=== PATIENT | female | born 1990 | race Caucasian/White ===

== ENCOUNTER 2016-12-29 11:40 | Emergency (ER) | payer OTHER ==
[2016-12-29] MEDS ORDERED: HYDROcodone/Acetaminophen 5/325 mg Tablet ONE (12:13)
--- NOTE | 2016-12-29 12:27 | RAD ---
LEFT KNEE 4 VIEWS: Date: 12/29/16 HISTORY: Injury with pain. FINDINGS: Joint spaces appear normal. No fracture. No joint effusion. IMPRESSION: No acute findings. POS: [facility]
== END 2016-12-29 12:46 | disposition home or self-care (01) ==
LOC: SCSER 11:40
DX: S83.92XA Sprain of unspecified site of left knee, initial encounter (principal); F17.210 Nicotine dependence, cigarettes, uncomplicated; X50.1XXA Overexertion from prolonged static or awkward postures, initial encounter

== ENCOUNTER 2017-02-23 14:47 | Emergency (ER) | payer OTHER ==
--- NOTE | 2017-02-23 16:32 | RAD ---
LEFT FOREARM TWO VIEWS: 02/23/17 HISTORY: 27-year-old female with left forearm pain and swelling and deformity after a slip and fall down stair s. There is prominent soft tissue swelling of the distal forearm dorsally and on the ulnar aspect. No ev idence for acute fracture. IMPRESSION: Soft tissue swelling without acute fracture or dislocation of the forearm. POS: [facility]
== END 2017-02-23 16:20 | disposition home or self-care (01) ==
LOC: SCSER 14:47
DX: S50.12XA Contusion of left forearm, initial encounter (principal); F17.210 Nicotine dependence, cigarettes, uncomplicated; W01.0XXA Fall on same level from slipping, tripping and stumbling without subsequent striking against object, initial encounter

== ENCOUNTER 2017-04-17 14:31 | Emergency (ER) | payer OTHER | END 2017-04-17 15:33 | disposition home or self-care (01) | LOC: SCSER 14:31 | DX: J11.1 Influenza due to unidentified influenza virus with other respiratory manifestations (principal); H10.31 Unspecified acute conjunctivitis, right eye; F17.210 Nicotine dependence, cigarettes, uncomplicated | CPT/HCPCS: 99283 ==

== ENCOUNTER 2017-04-20 11:46 | Emergency (ER) | payer OTHER ==
--- NOTE | 2017-04-20 12:41 | RAD ---
PA AND LATERAL OF THE CHEST: INDICATION: History of pinkeye, flu, vomiting, and difficulty breathing. COMPARISON: None. FINDINGS: No airspace consolidation is present. Heart size and pulmonary vasculature are within normal limits. No acute osseous abnormality is evident. There is instrumentation involving the glenoid which may be related to prior osseous Bankart injury. IMPRESSION: No acute cardiopulmonary abnormality. POS: [facility]
[2017-04-20] MEDS ORDERED: Ondansetron PF 4 MG/2 ML Vial ONE (13:31)
[2017-04-20] MEDS ORDERED: Famotidine/PF 20 mg/2ml Vial ONE (13:31)
[2017-04-20] MEDS ORDERED: Morphine 4 MG/ML Carpuject ONE (13:31)
[2017-04-20 13:33] LABS: #Eosinphils 0.1 thou/uL (0.0-0.7); #Lymphocytes 2.2 thou/uL (1.20-3.40); #Monocytes 0.4 thou/uL (0.11-0.59); #Neutrophils 5.7 thou/uL (1.40-6.50); %Basophils 0.4 % (0.0-1.0); %Lymphocytes 25.8 % (21.0-51.0); %Monocytes 4.2 % (0.0-10.0); %Neutrophils 68.6 % (42.0-75.0); Hemoglobin 13.7 g/dL (12.0-16.0); Mean Corpuscular Hemoglobin 32.9 pg (27.0-31.0); Mean Corpuscular Volume 91.3 fl (81.0-99.0); Mean Platelet Volume 9.5 fL (7.4-10.4); Platelet Count 213 thou/uL (130-400); RBC Distribution Width 11.3 % (11.5-14.5); Red Blood Cell (RBC) Count 4.17 mill/uL (4.20-5.40); White Blood Cell (WBC) Count 8.4 thou/uL (4.8-10.8)
[2017-04-20 13:49] LABS: ALT (SGPT) 31 U/L (8-55); AST (SGOT) 49 U/L (5-34); Albumin 4.4 g/dL (3.5-5.0); Alkaline Phosphatase 82 U/L (40-150); Anion Gap 14 mmol/L (10-20); BUN (Urea Nitrogen) 11 mg/dL (7.0-18.7); Bilirubin, Total 0.3 mg/dL (0.2-1.2); Calc. Creatinine Clearance 0 mL/min (70-130); Calcium 9.2 mg/dL (7.8-10.44); Carbon Dioxide 23 mmol/L (22-29); Chloride 110 mmol/L (98-107); Estimated GFR-MDRD Greater than 90; Globulin 2.5 g/dL (2.4-3.5); Glucose 88 mg/dL (70-105); Lipase 16 U/L (8-78); Potassium 4.1 mmol/L (3.5-5.1); Protein, Total 6.9 g/dL (6.0-8.3); Sodium 143 mmol/L (136-145)
[2017-04-20 14:34] LABS: Bilirubin Negative (Negative); Blood, Urine Negative (Negative); Clarity Clear (Clear); Glucose, Urine (Dipstick) Negative (Negative); Leukocyte Negative (Negative); Nitrite Negative (Negative); Protein, Urine (Dipstick) Negative (Neg-Trace); Urobilinogen 0.2 mg/dL (0.2-1.0)
== END 2017-04-20 15:12 | disposition home or self-care (01) ==
LOC: SCSER 11:46
DX: R11.2 Nausea with vomiting, unspecified (principal); R19.7 Diarrhea, unspecified; F17.210 Nicotine dependence, cigarettes, uncomplicated
CPT/HCPCS: 71046; 80053; 81003; 83690; 85025; 96361; 96374; 96375; J2270; J2405; S0028